=== PATIENT | male | born 1990 | race African-American/Black ===

== ENCOUNTER 2017-04-20 13:29 | Emergency (ER) | payer OTHER ==
[~2017-04-20] VITALS: Ht 177.8 cm; Wt 74.8 kg
[~2017-04-20 13:29] MED LIST: MOBIC7.5 M1 PO; NOHOMEMEDICATIONS; NORCO 5-325 TA1 EACH PO; ROBAXIN 750 MG750 MG PO
[2017-04-20 13:30] VITALS: BP 112/77
[2017-04-20] MEDS ORDERED: ERYTHROMYCIN E3.5 G1 OPHTHALMIC (13:54)
== END 2017-04-20 14:20 | disposition home or self-care (01) ==
LOC: ER 13:29
DX: H10.9 Unspecified conjunctivitis (principal)

== ENCOUNTER 2018-07-13 11:43 | Emergency (ER) | payer OTHER ==
[~2018-07-13] VITALS: Ht 170.2 cm; Wt 59.0 kg
[~2018-07-13 11:43] MED LIST changes: +ERYTHROMYCIN E3.5 G1 OPHTHALMIC
[2018-07-13] MEDS ORDERED: FLEXERIL PO ×2 (12:38→12:49)
[2018-07-13] MEDS ORDERED: NAPROSYN500 MG PO (12:38)
[2018-07-13] MEDS ORDERED: IBUPROFEN 800800 M1 PO (12:49)
[2018-07-13 12:58] VITALS: BP 121/79
== END 2018-07-13 13:05 | disposition home or self-care (01) ==
LOC: ER 11:43
DX: S39.012A Strain of muscle, fascia and tendon of lower back, initial encounter (principal); S93.491A Sprain of other ligament of right ankle, initial encounter; S63.591A Other specified sprain of right wrist, initial encounter; R51 Headache; H53.8 Other visual disturbances; V49.50XA Passenger injured in collision with unspecified motor vehicles in traffic accident, initial encounter; Y93.89 Activity, other specified; Y92.89 Other specified places as the place of occurrence of the external cause; Y99.8 Other external cause status